=== PATIENT | female | born 1985 | race Caucasian/White ===

== ENCOUNTER 2025-04-13 05:20 | Emergency (ER) | payer BC, SELFPAY ==
[2025-04-13 05:21] VITALS: BP 179/97; PULSE 84; RESP 16; TEMP 36.5; O2SAT 98; BMI 31.6
[2025-04-13] MEDS: 0.9% Normal Saline (1000mL) 1,000 ML 999 ML IV (05:51)
[2025-04-13 06:00] LABS: Hematocrit 44.6 % (37-47); Hemoglobin 15.0 g/dL (12.0-15.0); Immature Granulocytes Count 0.050 X10^3/uL (0.0-0.0); Mean Corp Hgb Conc 33.6 g/dL (32-36); Mean Corpuscular Volume 92.0 fL (81-99); Mean Platelet Vol. 9.9 fl (6.2-12.0); NRBC Flagged by Analyzer 0 % (0-5); Platelet Count 251 K/mm3 (150-450); RBC Distribution Width CV 11.9 % (11.6-14.6); RBC Distribution Width SD 40.1 fl (35.1-43.9); Red Blood Count 4.85 M/mm3 (4.2-5.4); White Blood Count 11.0 K/mm3 (4.4-11.0)
[2025-04-13 06:01] LABS: Mucous, Urine 0 SEEN /hpf (<or=2+); Red Blood Cells-Urine 0 SEEN /hpf (0-5)
[2025-04-13 06:02] LABS: Color, Urine Yellow (Yellow); Glucose, Dipstick Normal (Normal); Ketone-Dipstick Negative (Negative); Leukocyte Esterase-Dipstick Negative /ul (Negative); Nitrite-Dipstick Negative (Negative); Occult Blood-Urine 10 /ul (Negative); Protein-Dipstick 15 mg/dl (Negative); Specific Gravity, Urine 1.020 (1.002-1.030); Urine Bilirubin Dipstick Negative (Negative)
[2025-04-13 06:21] VITALS: BP 124/81; PULSE 78; RESP 18
[2025-04-13 06:26] LABS: Squamous Epithelial Cells - UA 0-5 SEEN /hpf (5-10)
--- NOTE | 2025-04-13 06:32 | CT_ITS ---
PROCEDURE: ABDOMEN/PELVIS WITHOUT CONT 04/13/2025 REASON FOR EXAM: LEFT FLANK PAIN TECHNIQUE: ABDOMEN/PELVIS WITHOUT CONT Noncontrast technique limits evaluation of the abdominal and pelvic viscera. Coronal and Sagittal reconstruction series were provided. One or more dose reduction techniques were used (e.g., Automated exposure control, adjustment of the mA and/or kV according to patient size, use of iterative reconstruction technique). RADIATION DOSE SUMMARY: CTDlvol: mGy DLP: mGycm COMPARISON: none FINDINGS: Enlarged liver showing homogenous parenchymal attenuation with fatty changes. No dilated intra or extra-hepatic biliary tracts. Gall bladder showing no radiodense calculi. No abnormal mural thickening. Clear surrounding fat planes with no sizeable collections. Normal unenhanced appearance of the pancreas with clear surrounding fat planes. The unenhanced spleen, adrenal glands, aorta and IVC are unremarkable. Both kidneys are of average size and showing smooth outline with preserved Distension of the urinary bladder showing no obvious masses. No obvious masses related to the pelvic viscera. Bilateral metallic clips of tubal ligation The appendix appears unremarkable. No right iliac inflammatory changes. Mobile caecum with mild cecal and ascending colon wall thickening, submucous fatty attenuation and prominent vascular arcades, possibly non specific inflammatory changes. The small bowel loops are unremarkable. The stomach is unremarkable. No ascites or free air. No obvious pathologically enlarged lymph nodes. Scanned osseous structures show no osseous destruction. Scanned lung bases show no obvious abnormalities. CT/Abdomen/Pelvis without Cont IMPRESSION: Fatty hepatomegaly. Mobile caecum with mild cecal and ascending colon wall thickening, submucous fa tty attenuation and prominent vascular arcades, possibly non specific inflammatory changes. Unremarkable rest of the study. Reading [facility]
[2025-04-13 06:36] LABS: Anion Gap 10 (5-15); BUN 12 mg/dL (4-19); BUN/Creat Ratio 15.4 RATIO (10-20); Calcium,Total 8.8 mg/dL (7.6-11.0); Carbon Dioxide 22.5 mmol/L (21.0-32.0); Chloride 106 mmol/L (98-108); Estimated Creatinine Clearance 120.24 ml/min (50-250); Glucose 97 mg/dL (70-99); Potassium 3.9 mmol/L (3.3-5.1)
[2025-04-13 06:44] LABS: Internal QC Validated? YES +Cl - CLEAR BKGD; Pregnancy, Serum, hCG Quali. NEGATIVE Negative; Record Kit Lot#, Serum Preg. 0000947241
--- NOTE | 2025-04-13 07:25 | EDS_ITS ---
HPI History of Present Illness Chief Complaint: Flank Pain Informant: patient and spouse/S.O. Narrative Narrative: Patient is a 39-year-old female with past med history of ADHD and hypertension. She states she awoke from sleep roughly 1 hour ago with abdominal discomfort and had 2 bouts of vomiting. She states that there has been no associated diarrhea and she denies any dysuria or hematuria. She states there is also been no known sick contacts and she denies any fevers or chills. She states that she occasionally will experience pain secondary history of gastritis/acid reflux. She states she is unsure if this could be related to potential ulcer and th erefore comes in for an evaluation [facility] Medical History (Updated 04/18/25 @ 02:[address] Scott Fowler, DO) ADHD HTN (hypertension) Home Medications ?Medication ?Instructions ?Recorded ?Last Taken ?Type dextroamphetamine-amphetamine 30 30 mg PO BID 04/13/25 Unknown History mg tablet (Adderall) ondansetron 4 mg disintegrating 4 mg PO TID PRN nausea and 04/13/25 Unknown Rx tablet vomiting #21 tabs oxycodone-acetaminophen 5 mg-325 1 tab PO Q6H PRN pain 3 days #12 04/13/25 Unknown Rx mg tablet (Percocet) tabs Allergy/AdvReac Type Severity Reaction Status Date / Time No Known Allergies Allergy Verified 04/13/25 05:24 Social History Smoking Status: Current every day smoker tobacco type: cigarettes ROS ROS ED Constitutional Constitutional ED: Denies chills or fever(s) ENT ENT ED: Denies sore throat Cardiovascular Cardiovascular: Denies chest pain Respiratory/Chest Respiratory/Chest: Denies cough or dyspnea Gastrointestinal Gastrointestinal: Reports abdominal pain, nausea and vomiting; Denies constipation or diarrhea Genitourinary Genitourinary ED: Denies dysuria or hematuria Musculoskeletal Musculoskeletal: Denies myalgias Integumentary Denies rash Neurologic Neurologic: Denies headache(s) Hematologic/Lymphatic Hematologic/Lymphatic: Denies easy bleeding or easy bruising EXAM Physical Exam Const Vital Signs: 04/13/25 05:21 04/13/25 06:21 Temperature 97.7 F L Temperature Source Oral Pulse Rate 84 78 Respiratory Rate 16 18 Blood Pressure 179/97 H 124/81 H Blood Pressure Mean 124 95 Pulse Ox 98 Positive well nourished and well developed General Appearance ED: well developed; Negative for pallor HEENT HEENT Narrative: Normocephalic atraumatic No tongue or lip swelling no oral lesions no airway edema or compromise No secondary findings in the posterior pharynx to suggest infection Eyes PERRL and EOMs intact bilaterally General Eye ED: Negative for scleral icterus Neck supple Neck Narrative: No nuchal rigidity or meningeal signs Resp normal respiratory effort and clear to auscultation bilaterally Cardio regular rate and regular rhythm Rate: other Other Details: Heart is regular rate and rhythm without murmurs rubs or gallops Radial and carotid pulses are equal and symmetric GI non-distended and no masses GI Narrative: Abdomen is soft and nondistended with hyperactive bowel sounds. There is pain with palpation along the right upper abdomen the midepigastric region No voluntary guarding or rigidity or pulsatile mass Negative Reece sign No peritoneal signs Auscultation: hyperactive bowel sounds Palpation: soft Back/Spine Back/Spine Narrative: There is mild right CVA pain noted Extremity normal to inspection Neuro oriented x3, CN's II-XII intact bilaterally and no sensory deficits noted Sensorium / Orientation: alert Motor Exam: strength 5/5 throughout Psych Mood & Affect: anxious Skin no rashes or lesions noted and no wounds General Skin Exam: Negative for jaundice or pallor MDM MDM MDM Narrative Medical decision making narrative: Patient arrived to the ER hypertensive but has a past medical history of this and otherwise with stable vital. With the sudden onset of her pain there is concern this could be acute pancreatitis versus biliary colic versus acute cholecystitis versus UTI pyelonephritis or kidney stone. Secondary to his basic labs were obtained with urine sample and a CT scan was ordered as well. Labs revealed no clinically significant findings. Lipase is normal going against anthony creatitis liver enzymes are not elevated going against biliary colic or acute cholecystitis and urine sample does not show blood consistent with kidney stone or signs of infection going against pyelonephritis. The CT scan showed nonspecific inflammation throughout the cecum but overall no signs of abscess perforation or acute intestinal infection. On reevaluation the patient has had improvement of symptoms. We did discuss that we could perform a ultrasound to look at ovarian pathology as her pain has not completely resolved. However there is no sign of pelvic pathology on the CT scan and clinical suspicion for ovarian cyst that was missed or potential torsion or pelvic inflammatory disease is extremely low. The patient states she does not want to undergo this as her main concern was for potential developing ulcer. At this time as there is no obvious signs of infection or intestinal perforation or obstruction and she has had improvement of her vitals and her pain she can follow-up as an outpatient for further care History & Record Review Discussion w/independent historian: Patient and Significant other Lab Data Attestation: I reviewed the patient's lab results. Labs: Laboratory Results - last 24 hr 04/13/25 04/13/25 05:28 05:55 WBC 11.0 RBC 4.85 Hgb 15.0 Hct 44.6 MCV 92.0 MCH 30.9 MCHC 33.6 RDW Std Deviation 40.1 RDW Coeff of Dora 11.9 Plt Count 251 MPV 9.9 Immature Gran % (Auto) 0.500 Neut % (Auto) 70.7 H Lymph % (Auto) 19.6 [place] % (Auto) 7.1 Eos % (Auto) 1.5 Baso % (Auto) 0.6 Absolute Neuts (auto) 7.8 H Absolute Lymphs (auto) 2.16 Nucleated RBC % 0 Sodium 138 Potassium 3.9 Chloride 106 Carbon Dioxide 22.5 Anion Gap 10 BUN 12 Creatinine 0.78 Estim Creat Clear Calc 120.24 Est GFR (MDRD) Non-Af 99 BUN/Creatinine Ratio 15.4 Glucose 97 Calcium 8.8 Serum , Qual NEGATIVE Urine Color Yellow Urine Clarity Clear Urine pH 6.0 Ur Specific [place] 1.020 Urine Protein 15 H Urine Glucose (UA) Normal Urine Ketones Negative Urine Occult Blood 10 H Urine Nitrite Negative Urine Bilirubin Negative Urine Urobilinogen Normal Ur Leukocyte Esterase Negative Urine RBC 0 SEEN Urine WBC 0 SEEN Ur Squamous Epith Cells 0-5 SEEN Urine Bacteria 0 SEEN Urine Mucus 0 SEEN Radiography Diagnostic Testing: Clinical Impression(s) from Imaging Studies Abdomen/Pelvis CT 04/13/25 06:32 IMPRESSION: Fatty hepatomegaly. Mobile caecum with mild cecal and ascending colon wall thickening, submucous fatty attenuation and prominent vascular arcades, possibly non specific inflammatory changes. Unremarkable rest of the study. Reading Location: [place] [id number] Discharge Plan Triage Chief Complaint: Flank Pain ED Provider: Scott Fowler Dx/Rx/DC Orders Clinical Impression: Nonspecific abdominal pain, ADHD, Hypertension Instructions: Abdominal Pain Prescriptions: New oxycodone-acetaminophen [Percocet] 5-325 mg tablet 1 tab PO Q6H PRN (Reason: pain) 3 Days Qty: 12 0RF ondansetron 4 mg tablet,disintegrating 4 mg PO TID PRN (Reason: nausea and vomiting) Qty: 21 0RF No Action dextroamphetamine-amphetamine [Adderall] 30 mg tablet 30 mg PO BID Rx Instructions: administer doses at least 4-6 hours apart Primary Care Provider: Javi Perez Referrals: Javi Perez MD [Primary Care Provider] - Activity Restrictions/Additional Instructions: Your workup today did not show any signs of kidney stone or urinary tract infection. There was some nonspecific inflammation to your colon which could be the cause of your pain. Please take the prescribed medication as directed to help control symptoms. If you develop a fever of 100.4 or higher or worsening pain despite taking your medications please return to the ER for repeat evaluation Print Language: Estonian Disposition Disposition: Home, Self Care Discharge Date/Time: 04/13/25 07:55
[2025-04-13 07:48] VITALS: BP 139/82; PULSE 70; RESP 18; TEMP 36.6; O2SAT 98
== END 2025-04-13 07:55 | disposition home or self-care (01) ==
PROVIDERS: Emergency Provider Emergency Medicine; PCP Family Medicine; Visit Provider Emergency Medicine
DX: R10.9 Unspecified abdominal pain (principal); F90.9 Attention-deficit hyperactivity disorder, unspecified type; F17.210 Nicotine dependence, cigarettes, uncomplicated; I10 Essential (primary) hypertension; Z79.899 Other long term (current) drug therapy
CPT/HCPCS: 74176; 80048; 81001; 84703; 85025; 96361; 96374; 96375; 99283; A4216; J2405